=== PATIENT | male | born 1975 | race African-American/Black ===

== ENCOUNTER 2016-03-31 22:45 | Emergency (ER) | payer SELFPAY ==
[2016-03-31 23:46] LABS: AMPHETAMINES LEVEL URINE NEGATIVE (NEGATIVE); BENZODIAZEPINES URINE NEGATIVE (NEGATIVE); COCAINE METABOLITE URINE NEGATIVE (NEGATIVE); CONTROL LINE INT CTR LINE PRESENT; METHADONE URINE NEGATIVE (NEGATIVE); OPIATES URINE NEGATIVE (NEGATIVE); TRICYCLIC ANTIDEPRESS URINE NEGATIVE (NEGATIVE)
[2016-03-31 23:55] LABS: MEAN CORPUSCULAR HEMOGLOBIN 30.8 pg (27.0-33.0); MEAN CORPUSCULAR HGB CONC 32.4 g/dl (32.0-36.5); MEAN CORPUSCULAR VOLUME 95.2 fl (80.0-96.0); RED CELL DISTRIBUTION WIDTH 14.3 % (11.5-14.5); WHITE BLOOD COUNT 11.6 K/mm3 (4.0-10.0)
[2016-04-01 00:42] LABS: ANION GAP 11 MEQ/L (8-16); BLOOD UREA NITROGEN 12 MG/DL (7-18); CARBON DIOXIDE LEVEL 25 MEQ/L (21-32); CHLORIDE LEVEL 105 MEQ/L (98-107); CREATININE FOR GFR 1.09 MG/DL (0.70-1.30); GLOMERULAR FILTRATION RATE > 60.0 (>60); GLUCOSE, FASTING 87 MG/DL (70-105); POTASSIUM SERUM 3.6 MEQ/L (3.5-5.1); SODIUM LEVEL 141 MEQ/L (136-145)
[2016-04-01 00:43] LABS: ALBUMIN 4.1 GM/DL (3.2-5.2); ALBUMIN/GLOBULIN RATIO 1.05 (1.00-1.93); ALKALINE PHOSPHATASE 91 U/L (45-117); ALT/SGPT 22 U/L (12-78); AST/SGOT 18 U/L (15-37); BILIRUBIN,DIRECT < 0.1 MG/DL (0.0-0.2); BILIRUBIN,TOTAL 0.2 MG/DL (0.2-1.0); CALCIUM LEVEL 8.9 MG/DL (8.5-10.1)
--- NOTE | 2016-04-01 05:35 | EDDOCDS ---
Nurse's Notes [facility] Name: Jhon Hurd Age: 40 yrs Sex: Male : 1975 Arrival Date: 03/31/2016 Time: 22:45 Bed [facility] Private MD: NO PRIMARY PHYSICIAN, . Diagnosis: Alcohol use, unspecified with intoxication Presentation: 03/31 22:54 Presenting complaint: Patient states: pt affect very flat states " anxiety, depression sls1 and suicide, I dont know what more to tell you". Pt reports here from out of town been having these thoughts for "awhile". Mental Health Triage Level: Level 2: The patient displays active suicidal ideations. Adult Sepsis Screening: The patient does not have new or worsening altered mentation. Patient's respiratory rate is less than 22. Systolic blood pressure is greater than 100. Patient has a qSOFA score of 0- Negative Sepsis Screen. Mental Health Triage Level: Level 2:. Suicide/Homicide risk assessment- The patient admits to and/or has been reported to be having suicidal ideations. Patient denies SI and HI but presents with another emotional, behavioral or other mental health complaint. The patient reports that he/she. Status: Transition of care: patient was not received from another setting of care. 22:54 Acuity: RSOSY Level 3 sls1 22:54 Method Of Arrival: Walkin/Carried/Asstd sls1 Triage Assessment: 22:58 General: Appears in no apparent distress, Behavior is appropriate for age, cooperative. sls1 Pain: Denies pain. Pt Declines HIV testing. The patient is triaged at the bedside. See Assessment in Nurses Notes section of ED record. Neurological: Level of Consciousness is awake, alert. Respiratory: No deficits noted. Historical: - Allergies: no known allergies; - Home Meds: 1. none - PMHx: none; - PSHx: none; - Social history: Smoking status: Patient uses tobacco products, current every day smoker. No barriers to communication noted, The patient speaks fluent Macedonian, Speaks appropriately for age. - Family history: Not pertinent. - : The pt / caregiver states he / she is not on anticoagulants. Home medication list is obtained from the patient. - Exposure Risk Screening:: None identified. Screenin:00 Screening information is obtained from the patient. Fall risk: No risks identified. mgs Assistance ADL's: requires no assistance with activities of daily living. Abuse/DV Screen: The patient / caregiver reports he/she is: not in a situation that causes fear, pain or injury. Nutritional screening: No deficits noted. Advance Directives: Currently, there is no health care proxy. There is no active DNR order. home support is inadequate. Assessment: 23:03 Adult Sepsis Screening: The patient does not have new or worsening altered mentation. mgs Patient's respiratory rate is less than 22. Systolic blood pressure is greater than 100. Patient has a qSOFA score of 0- Negative Sepsis Screen. General: Appears unkempt, Behavior is cooperative. Neurological: Level of Consciousness is awake, alert, Oriented to person, place, time. Cardiovascular: Capillary refill < 3 seconds Heart tones S1 S2 present Pulses are 2+ in right radial artery and left radial artery. Respiratory: Airway is patent Respiratory effort is even, unlabored, Respiratory pattern is regular, symmetrical. 04/01 02:17 General: Appears in no apparent distress, Behavior is cooperative. Neurological: Level mgs of Consciousness is awake, alert, Oriented to person, place, time. Cardiovascular: Capillary refill < 3 seconds. Respiratory: Airway is patent Respiratory effort is even, unlabored, Respiratory pattern is regular, symmetrical. Derm: Skin is normal. 03:28 General: Appears in no apparent distress, Behavior is cooperative. Neurological: Level mgs of Consciousness is awake, alert, Oriented to person, place, time. Cardiovascular: Capillary refill < 3 seconds. Respiratory: Airway is patent Respiratory effort is even, unlabored, Respiratory pattern is regular, symmetrical. Derm: Skin is normal. 04:24 General: Appears in no apparent distress, Behavior is cooperative. Neurological: Level mgs of Consciousness is awake, alert, Oriented to person, place, time. Cardiovascular: Capillary refill < 3 seconds. Respiratory: Airway is patent Respiratory effort is even, unlabored, Respiratory pattern is regular, symmetrical. :. Derm: Skin is normal. 04:38 Adult Sepsis Screening: The patient does not have new or worsening altered mentation. mgs Patient's respiratory rate is less than 22. Systolic blood pressure is greater than 100. Patient has a qSOFA score of 0- Negative Sepsis Screen. General: Appears in no apparent distress, Behavior is appropriate for age, cooperative. Neurological: Level of Consciousness is awake, alert, Oriented to person, place, time. Cardiovascular: Capillary refill < 3 seconds. Respiratory: Airway is patent Respiratory effort is even, unlabored, Respiratory pattern is regular, symmetrical. Derm: Skin is normal. 05:34 General: Appears in no apparent distress, comfortable, Behavior is appropriate for age, ka4 cooperative, pleasant. Respiratory: Airway is patent Respiratory effort is even, unlabored, Respiratory pattern is regular, symmetrical. Derm: Skin is pink, warm & dry. Mental Health Eval: 04:29 Mental health consult is initiated at 04:00. 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 [facility]: The patient is not an established patient of [facility]. Referral Information: Evaluation referral is generated by the patient & his AA sponser. The patient was referred for evaluation because he was upset, intoxicated & expressed non-specific SI last evening. Subjective: The patients chief complaint is "I had a moment, that's all". Delusions are denied. Patient's mood is dysphoric. Hallucinations are denied. Patient was brought by his AA sponsor, who reported that patient reached out to him via text message last evening. Sponsor reports that patient was upset, had been drinking & said that he had thoughts of killing himself, in one of the texts. Sponsor stated that he had hx here a couple of years ago & his visit here was of great benefit, prompting him to bring patient here tonight. He advised that if D/C, patient would be able to stay with him. During interview patient explained that he & his GF had broken up & that this breakup had been coming for some time. He states that he is from [place] & that they'd met online a few years ago. He says that he moved here to be with her a year ago, but they are essentially "Two completely different people" & that their relationship was not working. He states that he left her place today for good, had consumed several beers & began feeling bad about himself. He repeatedly said that he "Had a moment", when describing his SI. He insists that the thoughts were brief, without plan or intent. He denies having any mental health hx whatsoever. He reports h/o heavy drinking prior to moving here, although rarely drinks now (citing his GF being a non-drinker). He says that he has had success with AA & thus reached out to his sponsor socorro when he was feeling bad. He firmly denies SI/HI now & is requesting D/C. He states intent to stay with his sponsor & make his own follow up arrangements today (which is his day off from work at [employer]), if D/C. His sponsor is in agreement with this plan as well. Mental Health history: alcohol abuse, Mental Health Admissions: None. Current Outpatient Mental Health Services: None. Current living environment is homeless. Patient presents to Emergency Department with the following symptoms within the past 2 weeks: alcohol abuse, depressed mood, relational problem, suicidal ideation with no plan. Substance abuse: As reported above. Mental status exam: Patients appearance is appropriate, Patient's behavior is cooperative, Speech is normal. Affect is appropriate. Mood is dysphoric. Hallucinations are denied. Appetite is normal. Memory is good. Energy level is normal. Content of thought is normal. Thought process is intact. Cognitive level is oriented to person, place, time and situation Patient's insight is fair. Judgement is fair. Rapport with interviewer is good. Suicidal Ideation is denied. Homicidal ideation is denied. Disposition: Medically cleared for disposition by James Lawson DO Psychiatric Consult is deferred per ED physician, Dr Lawson. The patient has a safe destination which is to the home of his sponsor, via POV. [facility] Admission Criteria: Not Applicable. Vital Signs: 03/31 22:46 BP 154 / 78; Pulse 90; Resp 20 S; Temp 96.6(O); Pulse Ox 91% on R/A; Weight 77.11 kg gr2 (R); Height 6 ft. 0 in. (182.88 cm) (R); Pain 4/10; 04/01 04:38 BP 133 / 66; Pulse 86; Resp 18; Temp 98.1(T); Pulse Ox 100% on R/A; mgs 03/31 22:46 Body Mass Index 23.06 (77.11 kg, 182.88 cm) gr2 Vitals: 03/31 22:46 Log In Time: March 31, 2016 at 22:46. RN notified that patient meets Red Flag gr2 criteria. ED Course: 22:45 Patient visited by Bernice Cabezas. gr2 22:45 Patient moved to Waiting gr2 22:46 NO PRIMARY PHYSICIAN, . is Private Physician. gr2 22:51 Patient visited by Bernice Cabezas. gr2 22:51 [facility] Patient moved to [facility] sls1 22:55 Triage Initiated sls1 23:00 James Fitzgerald,CHELSEY is Primary Nurse. mgs 23:03 Patient visited by James Fitzgerald RN. mgs 23:35 Patient visited by Rashaad Pinon. tr 23:47 Patient visited by Rashaad Pinon. tr 23:50 Acetaminophen Level Sent. mgs 23:50 Basic Metabolic Profile Sent. mgs 23:50 Complete Blood Count Sent. mgs 23:50 Ethyl Alcohol (ethanol) Sent. mgs 23:50 Liver Profile Sent. mgs 23:50 Salicylate Level Sent. mgs 23:50 Thyroid Stimulating Hormone Sent. mgs 04/01 00:31 Patient visited by Rashaad Pinon. tr 01:12 Patient visited by Rashaad Pinon. tr 01:25 James Lawson DO is Attending Physician. mm11 01:25 Patient visited by James Lawson DO. mm11 01:44 Patient visited by Rashaad Pinon. tr 01:54 Patient visited by James Lawson DO. mm11 02:00 Psych Safety Check: Location: Psych Room. Visual Assessment: Cooperative. tr 02:15 Psych Safety Check: Location: Psych Room. Visual Assessment: Cooperative. tr 02:27 Patient visited by Rashaad Pinon. tr 02:45 Psych Safety Check: Location: Psych Room. Visual Assessment: Cooperative. tr 03:00 Psych Safety Check: Location: Psych Room. Visual Assessment: Cooperative. tr 03:08 [facility] Payment Agreement was scanned into [employer] and attached to record. hs2 03:13 Patient name changed from Jhon\\S\\L\\S\\Hurd\\S\\ to Jhon\\S\\Brock\\S\\Hurd. EDMS 03:15 Psych Safety Check: Location: Psych Room. Visual Assessment: Cooperative. tr 03:28 Patient visited by James Fitzgerald RN. mgs 03:30 Psych Safety Check: Location: Psych Room. Visual Assessment: Cooperative. tr 03:45 Psych Safety Check: Location: Psych Room. Visual Assessment: Cooperative. tr 04:00 Psych Safety Check: Location: Psych Room. Visual Assessment: Cooperative. tr 04:15 Psych Safety Check: Location: Psych Room. Visual Assessment: Cooperative. tr 04:25 Patient visited by James Fitzgerald RN. mgs 04:27 Patient visited by Angelo Barreto PSA. jl 04:36 Patient visited by Rashaad Pinon. tr 04:40 Patient visited by James Fitzgerald RN. mgs 04:44 PSA Outpatient Referrals was scanned into [employer] and attached to record. jl 04:49 Patient visited by Rashaad Pinon. tr 05:04 Patient visited by Rashaad Pinon. tr 05:19 Patient visited by Rashaad Pinon. tr 05:22 Referral list, As provided by PFS is Referral Physician. mm11 05:30 Patient visited by Rashaad Pinon. tr 05:34 The patient / caregiver is instructed regarding the plan of care and ED course. ka4 05:34 No IV's were initiated during this patient's visit. No procedures done that require ka4 assistance. Order Results: Lab Order: Acetaminophen Level; SPEC'M 03/31/16 23:45 Test: ACETAMINOPHEN LEVEL; Value: < 2.0; Range: 10.0-30.0; Abnormal: Below low normal; Units: UG/ML; Status: F Lab Order: Basic Metabolic Profile; SPEC'M 03/31/16 23:45 Test: GLUCOSE, FASTING; Value: 87; Range: 70-105; Units: MG/DL; Status: F Test: BLOOD UREA NITROGEN; Value: 12; Range: 7-18; Units: MG/DL; Status: F Test: CREATININE FOR GFR; Value: 1.09; Range: 0.70-1.30; Units: MG/DL; Status: F Test: GLOMERULAR FILTRATION RATE; Value: > 60.0; Range: >60; Status: F Test: SODIUM LEVEL; Value: 141; Range: 136-145; Units: MEQ/L; Status: F Test: POTASSIUM SERUM; Value: 3.6; Range: 3.5-5.1; Units: MEQ/L; Status: F Test: CHLORIDE LEVEL; Value: 105; Range: 98-107; Units: MEQ/L; Status: F Test: CARBON DIOXIDE LEVEL; Value: 25; Range: 21-32; Units: MEQ/L; Status: F Test: ANION GAP; Value: 11; Range: 8-16; Units: MEQ/L; Status: F Test: CALCIUM LEVEL; Value: 8.9; Range: 8.5-10.1; Units: MG/DL; Status: F Test Note: ; Units are mL/min/1.73 m2 Chronic Kidney Disease Staging per NKF: Stage I & II GFR >=60 Normal to Mildly Decreased Stage III GFR 30-59 Moderately Decreased Stage IV GFR 15-29 Severely Decreased Stage V GFR <15 Very Little GFR Left ESRD GFR <15 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 Lab Order: Complete Blood Count; SPEC'M 03/31/16 23:45 Test: WHITE BLOOD COUNT; Value: 11.6; Range: 4.0-10.0; Abnormal: Above high normal; Units: K/mm3; Status: F Test: RED BLOOD COUNT; Value: 4.38; Range: 4.30-6.10; Units: M/mm3; Status: F Test: HEMOGLOBIN; Value: 13.5; Range: 14.0-18.0; Abnormal: Below low normal; Units: g/dl; Status: F Test: HEMATOCRIT; Value: 41.7; Range: 42.0-52.0; Abnormal: Below low normal; Units: %; Status: F Test: MEAN CORPUSCULAR VOLUME; Value: 95.2; Range: 80.0-96.0; Units: fl; Status: F Test: MEAN CORPUSCULAR HEMOGLOBIN; Value: 30.8; Range: 27.0-33.0; Units: pg; Status: F Test: MEAN CORPUSCULAR HGB CONC; Value: 32.4; Range: 32.0-36.5; Units: g/dl; Status: F Test: RED CELL DISTRIBUTION WIDTH; Value: 14.3; Range: 11.5-14.5; Units: %; Status: F Test: PLATELET COUNT, AUTOMATED; Value: 228; Range: 150-450; Units: k/mm3; Status: F Lab Order: Drug Eval Toxicology ED Only; SPEC'M 03/31/16 00:00 Test: AMPHETAMINES LEVEL URINE; Value: NEGATIVE; Range: NEGATIVE; Status: F Test: BARBITURATES URINE; Value: NEGATIVE; Range: NEGATIVE; Status: F Test: BENZODIAZEPINES URINE; Value: NEGATIVE; Range: NEGATIVE; Status: F Test: CANNABINOIDS URINE; Value: NEGATIVE; Range: NEGATIVE; Status: F Test: COCAINE METABOLITE URINE; Value: NEGATIVE; Range: NEGATIVE; Status: F Test: METHADONE URINE; Value: NEGATIVE; Range: NEGATIVE; Status: F Test: OPIATES URINE; Value: NEGATIVE; Range: NEGATIVE; Status: F Test: TRICYCLIC ANTIDEPRESS URINE; Value: NEGATIVE; Range: NEGATIVE; Status: F Test Note: ; ALL PRESUMPTIVE POSITIVE FINDINGS ARE UNCONFIRMED NORMAL VALUES THRESHOLD IN NG/ML AMPHETAMINES 1000 METHAMPHETAMINES 1000 BARBITURATES 300 BENZODIAZEPINES 300 CANNABINOIDS (THC) 50 COCAINE METABOLITE 300 METHADONE 300 OPIATES 300 PHENCYCLIDINE 25 TRICYCLIC ANTIDEPRESSANTS 1000 RESULTS ARE FOR MEDICAL PURPOSES ONLY. ALL URINE SPECIMENS WILL BE SAVED FOR 3 DAYS. IF CONFIRMATION OF A PRESUMPTIVE POSTIVE SCREEN RESULT IS DESIRED, CALL CHEMISTRY ([phone]) AND REQUEST URINE TO BE SENT TO REFERENCE LAB. FOR A LIST OF CLOSELY RELATED COMPOUNDS PLEASE CALL THE LAB. Lab Order: Ethyl Alcohol (ethanol); SPEC'M 03/31/16 23:45 Test: ETHYL ALCOHOL (ETHANOL); Value: 0.159; Range: 0.000-0.010; Abnormal: Above high normal; Units: %; Status: F Lab Order: Liver Profile; SPEC'M 03/31/16 23:45 Test: AST/SGOT; Value: 18; Range: 15-37; Units: U/L; Status: F Test: ALT/SGPT; Value: 22; Range: 12-78; Units: U/L; Status: F Test: ALKALINE PHOSPHATASE; Value: 91; Range: 45-117; Units: U/L; Status: F Test: BILIRUBIN,TOTAL; Value: 0.2; Range: 0.2-1.0; Units: MG/DL; Status: F Test: BILIRUBIN,DIRECT; Value: < 0.1; Range: 0.0-0.2; Units: MG/DL; Status: F Test: TOTAL PROTEIN; Value: 8.0; Range: 6.4-8.2; Units: GM/DL; Status: F Test: ALBUMIN; Value: 4.1; Range: 3.2-5.2; Units: GM/DL; Status: F Test: ALBUMIN/GLOBULIN RATIO; Value: 1.05; Range: 1.00-1.93; Status: F Lab Order: Salicylate Level; SPEC'M 03/31/16 23:45 Test: SALICYLATE LEVEL; Value: 4.6; Range: 5.0-30.0; Abnormal: Below low normal; Units: MG/DL; Status: F Lab Order: Thyroid Stimulating Hormone; SPEC'M 03/31/16 23:45 Test: THYROID STIMULATING HORMONE; Value: 0.586; Range: 0.358-3.740; Units: uIU/ML; Status: F Outcome: 05:22 Discharge ordered by Provider. mm11 05:34 Discharge Assessment: Patient awake, alert and oriented x 3. No cognitive and/or ka4 functional deficits noted. Patient verbalized understanding of disposition instructions. patient administered narcotics - no. The following High Risk Discharge criteria are identified: None. Condition: good Condition: stable. No special radiology studies were completed. Property given to the patient. 05:35 Patient left the ED. ka4 Signatures: Dispatcher [employer] EDMS Angelo Barreto, Rashaad Pavon Matthew, DO DO mm11 Tracee Xiong, RN RN sls1 Bernice Cabezas gr2 Luly Lawrence LPN APPEALS COORDINATOR ka4 James Fitzgerald,RN RN s Aspen Thompson, Reg Reg hs2 MTDD
--- NOTE | 2016-04-01 05:35 | EDDOCDS ---
Physician Documentation [facility] Name: Jhon Hurd Age: 40 yrs Sex: Male : 1975 Arrival Date: 03/31/2016 Time: 22:45 Bed [facility] Private MD: NO PRIMARY PHYSICIAN, . Disposition: 04/01/16 05:22 Discharged to Home/Self Care. Impression: Alcohol use, unspecified with intoxication. - Condition is Stable. - Discharge Instructions: Alcohol Intoxication, Alcohol Intoxication, [id number]. - Medication Reconciliation, Local Pharmacy Hours form. - Follow up: Referral list, As provided by PFS; When: Call to arrange an appointment; Reason: To establish care. - Problem is an acute exacerbation. - Symptoms have improved. Historical: - Allergies: no known allergies; - Home Meds: 1. none - PMHx: none; - PSHx: none; - Social history: Smoking status: Patient uses tobacco products, current every day smoker. No barriers to communication noted, The patient speaks fluent Mohawk, Speaks appropriately for age. - Family history: Not pertinent. - : The pt / caregiver states he / she is not on anticoagulants. Home medication list is obtained from the patient. - Exposure Risk Screening:: None identified. Vital Signs: 03/31 22:46 BP 154 / 78; Pulse 90; Resp 20 S; Temp 96.6(O); Pulse Ox 91% on R/A; Weight 77.11 kg / gr2 170 lbs (R); Height 6 ft. 0 in. (182.88 cm) (R); Pain 4/10; 04/01 04:38 BP 133 / 66; Pulse 86; Resp 18; Temp 98.1(T); Pulse Ox 100% on R/A; mgs 03/31 22:46 Body Mass Index 23.06 (77.11 kg, 182.88 cm) gr2 MDM: 03/31 23:00 Consult PFS/PSA/Manager Talent ordered. apr 06:00 Consult PFS/PSA/Manager Talent: Patient's case requires discussion with on-call tristan Psychiatrist ordered. 23:00 PSA/PFS to call Nursing It Sales Consultant, to enter patient data on [place] Safe Act if patient tristan involuntarily admitted or transferred for SI or HI ordered. 23:00 Confirm accurate psychiatric medication list and times of last dosage ordered. mar 23:00 Detain Pt Until Medically/PFS Cleared ordered. mar 23:01 Acetaminophen Level Ordered. EDMS 23:01 Basic Metabolic Profile Ordered. EDMS 23:01 Complete Blood Count Ordered. EDMS 23:01 Drug Eval Toxicology ED Only Ordered. EDMS 23:01 Ethyl Alcohol (ethanol) Ordered. EDMS 23:01 Liver Profile Ordered. EDMS 23:01 Salicylate Level Ordered. EDMS 23:01 Thyroid Stimulating Hormone Ordered. EDMS 04/01 03:04 Financial registration complete. hs2 03:08 [facility] Payment Agreement was scanned into [employer] and attached to record. hs2 03:20 Acetaminophen Level Reviewed. mm11 03:20 Complete Blood Count Reviewed. mm11 03:20 Ethyl Alcohol (ethanol) Reviewed. mm11 03:20 Salicylate Level Reviewed. mm11 03:20 Basic Metabolic Profile Reviewed. mm11 03:20 Drug Eval Toxicology ED Only Reviewed. mm11 03:20 Liver Profile Reviewed. mm11 03:20 Thyroid Stimulating Hormone Reviewed. mm11 04:44 PSA Outpatient Referrals was scanned into [employer] and attached to record. jl 04:45 Consult PFS/PSA/Manager Talent complete. jl 04:45 Consult PFS/PSA/Manager Talent: Patient's case requires discussion with on-call jl Psychiatrist complete. 04:45 PSA/PFS to call Nursing It Sales Consultant, to enter patient data on [place] Safe [place] if patient jl involuntarily admitted or transferred for SI or HI complete. 05:13 REGULAR DIET PLASTIC SIFUENTES+DIET ordered. EDMS Signatures: Dispatcher [employer] EDRI Renée Steward RN RN jan LaFontaine, Jon, PSA PSA James Kim, DO DO mm11 Tracee Xiong RN RN sls1 Luly Lawrence LPN TRANSPORTATION MAINTENANCE SPECIALIST ka4 Aspen Thompson, Reg Reg hs2 The chart was reviewed and I authenticate all verbal orders and agree with the evaluation and treatment provided.Attachments: 03:08 [facility] Payment Agreement hs2 MTDD
--- NOTE | 2016-04-03 06:35 | EDDOCDS ---
Nurse's Notes [facility] Name: Jhon Hurd Age: 40 yrs Sex: Male : 1975 Arrival Date: 03/31/2016 Time: 22:45 Bed [facility] Private MD: NO PRIMARY PHYSICIAN, . Diagnosis: Alcohol use, unspecified with intoxication Presentation: 03/31 22:54 Presenting complaint: Patient states: pt affect very flat states " anxiety, depression sls1 and suicide, I dont know what more to tell you". Pt reports here from out of town been having these thoughts for "awhile". Mental Health Triage Level: Level 2: The patient displays active suicidal ideations. Adult Sepsis Screening: The patient does not have new or worsening altered mentation. Patient's respiratory rate is less than 22. Systolic blood pressure is greater than 100. Patient has a qSOFA score of 0- Negative Sepsis Screen. Mental Health Triage Level: Level 2:. Suicide/Homicide risk assessment- The patient admits to and/or has been reported to be having suicidal ideations. Patient denies SI and HI but presents with another emotional, behavioral or other mental health complaint. The patient reports that he/she. Status: Transition of care: patient was not received from another setting of care. 22:54 Acuity: ROSSY Level 3 sls1 22:54 Method Of Arrival: Walkin/Carried/Asstd sls1 Triage Assessment: 22:58 General: Appears in no apparent distress, Behavior is appropriate for age, cooperative. sls1 Pain: Denies pain. Pt Declines HIV testing. The patient is triaged at the bedside. See Assessment in Nurses Notes section of ED record. Neurological: Level of Consciousness is awake, alert. Respiratory: No deficits noted. Historical: - Allergies: no known allergies; - Home Meds: 1. none - PMHx: none; - PSHx: none; - Social history: Smoking status: Patient uses tobacco products, current every day smoker. No barriers to communication noted, The patient speaks fluent Tajik, Speaks appropriately for age. - Family history: Not pertinent. - : The pt / caregiver states he / she is not on anticoagulants. Home medication list is obtained from the patient. - Exposure Risk Screening:: None identified. Screenin:00 Screening information is obtained from the patient. Fall risk: No risks identified. mgs Assistance ADL's: requires no assistance with activities of daily living. Abuse/DV Screen: The patient / caregiver reports he/she is: not in a situation that causes fear, pain or injury. Nutritional screening: No deficits noted. Advance Directives: Currently, there is no health care proxy. There is no active DNR order. home support is inadequate. Assessment: 23:03 Adult Sepsis Screening: The patient does not have new or worsening altered mentation. mgs Patient's respiratory rate is less than 22. Systolic blood pressure is greater than 100. Patient has a qSOFA score of 0- Negative Sepsis Screen. General: Appears unkempt, Behavior is cooperative. Neurological: Level of Consciousness is awake, alert, Oriented to person, place, time. Cardiovascular: Capillary refill < 3 seconds Heart tones S1 S2 present Pulses are 2+ in right radial artery and left radial artery. Respiratory: Airway is patent Respiratory effort is even, unlabored, Respiratory pattern is regular, symmetrical. 04/01 02:17 General: Appears in no apparent distress, Behavior is cooperative. Neurological: Level mgs of Consciousness is awake, alert, Oriented to person, place, time. Cardiovascular: Capillary refill < 3 seconds. Respiratory: Airway is patent Respiratory effort is even, unlabored, Respiratory pattern is regular, symmetrical. Derm: Skin is normal. 03:28 General: Appears in no apparent distress, Behavior is cooperative. Neurological: Level mgs of Consciousness is awake, alert, Oriented to person, place, time. Cardiovascular: Capillary refill < 3 seconds. Respiratory: Airway is patent Respiratory effort is even, unlabored, Respiratory pattern is regular, symmetrical. Derm: Skin is normal. 04:24 General: Appears in no apparent distress, Behavior is cooperative. Neurological: Level mgs of Consciousness is awake, alert, Oriented to person, place, time. Cardiovascular: Capillary refill < 3 seconds. Respiratory: Airway is patent Respiratory effort is even, unlabored, Respiratory pattern is regular, symmetrical. :. Derm: Skin is normal. 04:38 Adult Sepsis Screening: The patient does not have new or worsening altered mentation. mgs Patient's respiratory rate is less than 22. Systolic blood pressure is greater than 100. Patient has a qSOFA score of 0- Negative Sepsis Screen. General: Appears in no apparent distress, Behavior is appropriate for age, cooperative. Neurological: Level of Consciousness is awake, alert, Oriented to person, place, time. Cardiovascular: Capillary refill < 3 seconds. Respiratory: Airway is patent Respiratory effort is even, unlabored, Respiratory pattern is regular, symmetrical. Derm: Skin is normal. 05:34 General: Appears in no apparent distress, comfortable, Behavior is appropriate for age, ka4 cooperative, pleasant. Respiratory: Airway is patent Respiratory effort is even, unlabored, Respiratory pattern is regular, symmetrical. Derm: Skin is pink, warm & dry. Mental Health Eval: 04:29 Mental health consult is initiated at 04:00. Status: The patient is not a director of patient financial services or dependent. [facility] Behavioral Health: The patient is not an established patient of [facility] Behavioral Health. Referral Information: Evaluation referral is generated by the patient & his AA sponser. The patient was referred for evaluation because he was upset, intoxicated & expressed non-specific SI last evening. Subjective: The patients chief complaint is "I had a moment, that's all". Delusions are denied. Patient's mood is dysphoric. Hallucinations are denied. Patient was brought by his AA sponsor, who reported that patient reached out to him via text message last evening. Sponsor reports that patient was upset, had been drinking & said that he had thoughts of killing himself, in one of the texts. Sponsor stated that he had hx here a couple of years ago & his visit here was of great benefit, prompting him to bring patient here tonight. He advised that if D/C, patient would be able to stay with him. During interview patient explained that he & his GF had broken up & that this breakup had been coming for some time. He states that he is from [place] & that they'd met online a few years ago. He says that he moved here to be with her a year ago, but they are essentially "Two completely different people" & that their relationship was not working. He states that he left her place today for good, had consumed several beers & began feeling bad about himself. He repeatedly said that he "Had a moment", when describing his SI. He insists that the thoughts were brief, without plan or intent. He denies having any mental health hx whatsoever. He reports h/o heavy drinking prior to moving here, although rarely drinks now (citing his GF being a non-drinker). He says that he has had success with AA & thus reached out to his sponsor socorro when he was feeling bad. He firmly denies SI/HI now & is requesting D/C. He states intent to stay with his sponsor & make his own follow up arrangements today (which is his day off from work at [employer]), if D/C. His sponsor is in agreement with this plan as well. Mental Health history: alcohol abuse, Mental Health Admissions: None. Current Outpatient Mental Health Services: None. Current living environment is homeless. Patient presents to Emergency Department with the following symptoms within the past 2 weeks: alcohol abuse, depressed mood, relational problem, suicidal ideation with no plan. Substance abuse: As reported above. Mental status exam: Patients appearance is appropriate, Patient's behavior is cooperative, Speech is normal. Affect is appropriate. Mood is dysphoric. Hallucinations are denied. Appetite is normal. Memory is good. Energy level is normal. Content of thought is normal. Thought process is intact. Cognitive level is oriented to person, place, time and situation Patient's insight is fair. Judgement is fair. Rapport with interviewer is good. Suicidal Ideation is denied. Homicidal ideation is denied. Disposition: Medically cleared for disposition by James Lawson DO Psychiatric Consult is deferred per ED physician, Dr Lawson. The patient has a safe destination which is to the home of his sponsor, via POV. [facility] Admission Criteria: Not Applicable. Vital Signs: 03/31 22:46 BP 154 / 78; Pulse 90; Resp 20 S; Temp 96.6(O); Pulse Ox 91% on R/A; Weight 77.11 kg gr2 (R); Height 6 ft. 0 in. (182.88 cm) (R); Pain 4/10; 04/01 04:38 BP 133 / 66; Pulse 86; Resp 18; Temp 98.1(T); Pulse Ox 100% on R/A; mgs 03/31 22:46 Body Mass Index 23.06 (77.11 kg, 182.88 cm) gr2 Vitals: 03/31 22:46 Log In Time: March 31, 2016 at 22:46. RN notified that patient meets Red Flag gr2 criteria. ED Course: 22:45 Patient visited by Bernice Cabezas. gr2 22:45 Patient moved to Waiting gr2 22:46 NO PRIMARY PHYSICIAN, . is Private Physician. gr2 22:51 Patient visited by Bernice Cabezas. gr2 22:51 [facility] Patient moved to [facility] sls1 22:55 Triage Initiated sls1 23:00 James Fitzgerald,CHELSEY is Primary Nurse. mgs 23:03 Patient visited by James Fitzgerald RN. mgs 23:35 Patient visited by Rashaad Pinon. tr 23:47 Patient visited by Rashaad Pinon. tr 23:50 Acetaminophen Level Sent. mgs 23:50 Basic Metabolic Profile Sent. mgs 23:50 Complete Blood Count Sent. mgs 23:50 Ethyl Alcohol (ethanol) Sent. mgs 23:50 Liver Profile Sent. mgs 23:50 Salicylate Level Sent. mgs 23:50 Thyroid Stimulating Hormone Sent. mgs 04/01 00:31 Patient visited by Rashaad Pinon. tr 01:12 Patient visited by Rashaad Pinon. tr 01:25 James Lawson DO is Attending Physician. mm11 01:25 Patient visited by James Lawson DO. mm11 01:44 Patient visited by Rashaad Pinon. tr 01:54 Patient visited by James Lawson DO. mm11 02:00 Psych Safety Check: Location: Psych Room. Visual Assessment: Cooperative. tr 02:15 Psych Safety Check: Location: Psych Room. Visual Assessment: Cooperative. tr 02:27 Patient visited by Rashaad Pinon. tr 02:45 Psych Safety Check: Location: Psych Room. Visual Assessment: Cooperative. tr 03:00 Psych Safety Check: Location: Psych Room. Visual Assessment: Cooperative. tr 03:08 [facility] Payment Agreement was scanned into [employer] and attached to record. hs2 03:13 Patient name changed from Jhon\\S\\L\\S\\Hurd\\S\\ to Jhon\\S\\Brock\\S\\Hurd. EDMS 03:15 Psych Safety Check: Location: Psych Room. Visual Assessment: Cooperative. tr 03:28 Patient visited by James Fitzgerald RN. mgs 03:30 Psych Safety Check: Location: Psych Room. Visual Assessment: Cooperative. tr 03:45 Psych Safety Check: Location: Psych Room. Visual Assessment: Cooperative. tr 04:00 Psych Safety Check: Location: Psych Room. Visual Assessment: Cooperative. tr 04:15 Psych Safety Check: Location: Psych Room. Visual Assessment: Cooperative. tr 04:25 Patient visited by James Fitzgerald RN. mgs 04:27 Patient visited by Angelo Barreto PSA. jl 04:36 Patient visited by Rashaad Pinon. tr 04:40 Patient visited by James Fitzgerald RN. mgs 04:44 PSA Outpatient Referrals was scanned into [employer] and attached to record. jl 04:49 Patient visited by Rashaad Pinon. tr 05:04 Patient visited by Rashaad Pinon. tr 05:19 Patient visited by Rashaad Pinon. tr 05:22 Referral list, As provided by PFS is Referral Physician. mm11 05:30 Patient visited by Rashaad Pinon. tr 05:34 The patient / caregiver is instructed regarding the plan of care and ED course. ka4 05:34 No IV's were initiated during this patient's visit. No procedures done that require ka4 assistance. 12:03 T-Sheet-- Draft Copy was scanned into [employer] and attached to record. gb Order Results: Lab Order: Acetaminophen Level; SPEC'M 03/31/16 23:45 Test: ACETAMINOPHEN LEVEL; Value: < 2.0; Range: 10.0-30.0; Abnormal: Below low normal; Units: UG/ML; Status: F Lab Order: Basic Metabolic Profile; SPEC'M 03/31/16 23:45 Test: GLUCOSE, FASTING; Value: 87; Range: 70-105; Units: MG/DL; Status: F Test: BLOOD UREA NITROGEN; Value: 12; Range: 7-18; Units: MG/DL; Status: F Test: CREATININE FOR GFR; Value: 1.09; Range: 0.70-1.30; Units: MG/DL; Status: F Test: GLOMERULAR FILTRATION RATE; Value: > 60.0; Range: >60; Status: F Test: SODIUM LEVEL; Value: 141; Range: 136-145; Units: MEQ/L; Status: F Test: POTASSIUM SERUM; Value: 3.6; Range: 3.5-5.1; Units: MEQ/L; Status: F Test: CHLORIDE LEVEL; Value: 105; Range: 98-107; Units: MEQ/L; Status: F Test: CARBON DIOXIDE LEVEL; Value: 25; Range: 21-32; Units: MEQ/L; Status: F Test: ANION GAP; Value: 11; Range: 8-16; Units: MEQ/L; Status: F Test: CALCIUM LEVEL; Value: 8.9; Range: 8.5-10.1; Units: MG/DL; Status: F Test Note: ; Units are mL/min/1.73 m2 Chronic Kidney Disease Staging per NKF: Stage I & II GFR >=60 Normal to Mildly Decreased Stage III GFR 30-59 Moderately Decreased Stage IV GFR 15-29 Severely Decreased Stage V GFR <15 Very Little GFR Left ESRD GFR <15 on LOCKSTITCH TUNNEL ELASTIC OPERATOR Lab Order: Complete Blood Count; SPEC'M 03/31/16 23:45 Test: WHITE BLOOD COUNT; Value: 11.6; Range: 4.0-10.0; Abnormal: Above high normal; Units: K/mm3; Status: F Test: RED BLOOD COUNT; Value: 4.38; Range: 4.30-6.10; Units: M/mm3; Status: F Test: HEMOGLOBIN; Value: 13.5; Range: 14.0-18.0; Abnormal: Below low normal; Units: g/dl; Status: F Test: HEMATOCRIT; Value: 41.7; Range: 42.0-52.0; Abnormal: Below low normal; Units: %; Status: F Test: MEAN CORPUSCULAR VOLUME; Value: 95.2; Range: 80.0-96.0; Units: fl; Status: F Test: MEAN CORPUSCULAR HEMOGLOBIN; Value: 30.8; Range: 27.0-33.0; Units: pg; Status: F Test: MEAN CORPUSCULAR HGB CONC; Value: 32.4; Range: 32.0-36.5; Units: g/dl; Status: F Test: RED CELL DISTRIBUTION WIDTH; Value: 14.3; Range: 11.5-14.5; Units: %; Status: F Test: PLATELET COUNT, AUTOMATED; Value: 228; Range: 150-450; Units: k/mm3; Status: F Lab Order: Drug Eval Toxicology ED Only; SPEC'M 03/31/16 00:00 Test: AMPHETAMINES LEVEL URINE; Value: NEGATIVE; Range: NEGATIVE; Status: F Test: BARBITURATES URINE; Value: NEGATIVE; Range: NEGATIVE; Status: F Test: BENZODIAZEPINES URINE; Value: NEGATIVE; Range: NEGATIVE; Status: F Test: CANNABINOIDS URINE; Value: NEGATIVE; Range: NEGATIVE; Status: F Test: COCAINE METABOLITE URINE; Value: NEGATIVE; Range: NEGATIVE; Status: F Test: METHADONE URINE; Value: NEGATIVE; Range: NEGATIVE; Status: F Test: OPIATES URINE; Value: NEGATIVE; Range: NEGATIVE; Status: F Test: TRICYCLIC ANTIDEPRESS URINE; Value: NEGATIVE; Range: NEGATIVE; Status: F Test Note: ; ALL PRESUMPTIVE POSITIVE FINDINGS ARE UNCONFIRMED NORMAL VALUES THRESHOLD IN NG/ML AMPHETAMINES 1000 METHAMPHETAMINES 1000 BARBITURATES 300 BENZODIAZEPINES 300 CANNABINOIDS (THC) 50 COCAINE METABOLITE 300 METHADONE 300 OPIATES 300 PHENCYCLIDINE 25 TRICYCLIC ANTIDEPRESSANTS 1000 RESULTS ARE FOR MEDICAL PURPOSES ONLY. ALL URINE SPECIMENS WILL BE SAVED FOR 3 DAYS. IF CONFIRMATION OF A PRESUMPTIVE POSTIVE SCREEN RESULT IS DESIRED, CALL CHEMISTRY ([phone]) AND REQUEST URINE TO BE SENT TO REFERENCE LAB. FOR A LIST OF CLOSELY RELATED COMPOUNDS PLEASE CALL THE LAB. Lab Order: Ethyl Alcohol (ethanol); SPEC'M 03/31/16 23:45 Test: ETHYL ALCOHOL (ETHANOL); Value: 0.159; Range: 0.000-0.010; Abnormal: Above high normal; Units: %; Status: F Lab Order: Liver Profile; SPEC'M 03/31/16 23:45 Test: AST/SGOT; Value: 18; Range: 15-37; Units: U/L; Status: F Test: ALT/SGPT; Value: 22; Range: 12-78; Units: U/L; Status: F Test: ALKALINE PHOSPHATASE; Value: 91; Range: 45-117; Units: U/L; Status: F Test: BILIRUBIN,TOTAL; Value: 0.2; Range: 0.2-1.0; Units: MG/DL; Status: F Test: BILIRUBIN,DIRECT; Value: < 0.1; Range: 0.0-0.2; Units: MG/DL; Status: F Test: TOTAL PROTEIN; Value: 8.0; Range: 6.4-8.2; Units: GM/DL; Status: F Test: ALBUMIN; Value: 4.1; Range: 3.2-5.2; Units: GM/DL; Status: F Test: ALBUMIN/GLOBULIN RATIO; Value: 1.05; Range: 1.00-1.93; Status: F Lab Order: Salicylate Level; SPEC'M 03/31/16 23:45 Test: SALICYLATE LEVEL; Value: 4.6; Range: 5.0-30.0; Abnormal: Below low normal; Units: MG/DL; Status: F Lab Order: Thyroid Stimulating Hormone; SPEC'M 03/31/16 23:45 Test: THYROID STIMULATING HORMONE; Value: 0.586; Range: 0.358-3.740; Units: uIU/ML; Status: F Outcome: 05:22 Discharge ordered by Provider. mm11 05:34 Discharge Assessment: Patient awake, alert and oriented x 3. No cognitive and/or ka4 functional deficits noted. Patient verbalized understanding of disposition instructions. patient administered narcotics - no. The following High Risk Discharge criteria are identified: None. Condition: good Condition: stable. No special radiology studies were completed. Property given to the patient. 05:35 Patient left the ED. ka4 Signatures: Dispatcher [employer] EDMS Angelo Barreto, VALENTINA PSA Vanessa Maldonado, Reg Reg gb Rashaad Pinon Matthew, DO mm11 Tracee Xiong RN RN sls1 Bernice Cabezas gr2 Luly Lawrence LPN QUALITY ASSURANCE QA LAB TECHNICIAN ka4 James Fitzgerald RN RN mgAspen Flores, Reg Reg hs2 Chart Complete MTDD
--- NOTE | 2016-04-03 06:35 | EDDOCDS ---
Physician Documentation [facility] Name: Jhon Hurd Age: 40 yrs Sex: Male : 1975 Arrival Date: 03/31/2016 Time: 22:45 Bed [facility] Private MD: NO PRIMARY PHYSICIAN, . Disposition: 04/01/16 05:22 Discharged to Home/Self Care. Impression: Alcohol use, unspecified with intoxication. - Condition is Stable. - Discharge Instructions: Alcohol Intoxication, Alcohol Intoxication, [id number]. - Medication Reconciliation, Local Pharmacy Hours form. - Follow up: Referral list, As provided by PFS; When: Call to arrange an appointment; Reason: To establish care. - Problem is an acute exacerbation. - Symptoms have improved. Historical: - Allergies: no known allergies; - Home Meds: 1. none - PMHx: none; - PSHx: none; - Social history: Smoking status: Patient uses tobacco products, current every day smoker. No barriers to communication noted, The patient speaks fluent Polish, Speaks appropriately for age. - Family history: Not pertinent. - : The pt / caregiver states he / she is not on anticoagulants. Home medication list is obtained from the patient. - Exposure Risk Screening:: None identified. Vital Signs: 03/31 22:46 BP 154 / 78; Pulse 90; Resp 20 S; Temp 96.6(O); Pulse Ox 91% on R/A; Weight 77.11 kg / gr2 170 lbs (R); Height 6 ft. 0 in. (182.88 cm) (R); Pain 4/10; 04/01 04:38 BP 133 / 66; Pulse 86; Resp 18; Temp 98.1(T); Pulse Ox 100% on R/A; mgs 03/31 22:46 Body Mass Index 23.06 (77.11 kg, 182.88 cm) gr2 MDM: 03/31 23:00 Consult PFS/PSA/Cargo Operations Agent ordered. apr 06:00 Consult PFS/PSA/Cargo Operations Agent: Patient's case requires discussion with on-call tristan Psychiatrist ordered. 23:00 PSA/PFS to call Nursing Mechanical Striper, to enter patient data on [place] Safe Act if patient tristan involuntarily admitted or transferred for SI or HI ordered. 23:00 Confirm accurate psychiatric medication list and times of last dosage ordered. mar 23:00 Detain Pt Until Medically/PFS Cleared ordered. mar 23:01 Acetaminophen Level Ordered. EDMS 23:01 Basic Metabolic Profile Ordered. EDMS 23:01 Complete Blood Count Ordered. EDMS 23:01 Drug Eval Toxicology ED Only Ordered. EDMS 23:01 Ethyl Alcohol (ethanol) Ordered. EDMS 23:01 Liver Profile Ordered. EDMS 23:01 Salicylate Level Ordered. EDMS 23:01 Thyroid Stimulating Hormone Ordered. EDMS 04/01 03:04 Financial registration complete. hs2 03:08 [facility] Payment Agreement was scanned into [employer] and attached to record. hs2 03:20 Acetaminophen Level Reviewed. mm11 03:20 Complete Blood Count Reviewed. mm11 03:20 Ethyl Alcohol (ethanol) Reviewed. mm11 03:20 Salicylate Level Reviewed. mm11 03:20 Basic Metabolic Profile Reviewed. mm11 03:20 Drug Eval Toxicology ED Only Reviewed. mm11 03:20 Liver Profile Reviewed. mm11 03:20 Thyroid Stimulating Hormone Reviewed. mm11 04:44 PSA Outpatient Referrals was scanned into [employer] and attached to record. jl 04:45 Consult PFS/PSA/Cargo Operations Agent complete. jl 04:45 Consult PFS/PSA/Cargo Operations Agent: Patient's case requires discussion with on-call jl Psychiatrist complete. 04:45 PSA/PFS to call Nursing Mechanical Striper, to enter patient data [place] Safe [place] if patient jl involuntarily admitted or transferred for SI or HI complete. 05:13 REGULAR DIET PLASTIC SIFUENTES+DIET ordered. EDMS 12:03 T-Sheet-- Draft Copy was scanned into [employer] and attached to record. gb Signatures: Dispatcher [employer] EDKY Renée Steward RN RN jan LaFontaine, Jon, PSA PSA jl Vanessa Livingston, Reg Reg gb James Lawson, DO mm11 Tracee Xiong RN RN sls1 Luly Lawrence,POLICY WRITER SALES POLICY WRITER SALES ka4 Aspen Thompson, Reg Reg hs2 The chart was reviewed and I authenticate all verbal orders and agree with the evaluation and treatment provided.Attachments: 03:08 [facility] Payment Agreement hs2 12:03 T-Sheet-- Draft Copy gb Chart Complete MTDD
--- NOTE | 2016-04-03 06:35 | EDDOCDS ---
Physician Documentation [facility] Name: Jhon Hurd Age: 40 yrs Sex: Male : 1975 Arrival Date: 03/31/2016 Time: 22:45 Bed [facility] Private MD: NO PRIMARY PHYSICIAN, . Disposition: 04/01/16 05:22 Discharged to Home/Self Care. Impression: Alcohol use, unspecified with intoxication. - Condition is Stable. - Discharge Instructions: Alcohol Intoxication, Alcohol Intoxication, [id number]. - Medication Reconciliation, Local Pharmacy Hours form. - Follow up: Referral list, As provided by PFS; When: Call to arrange an appointment; Reason: To establish care. - Problem is an acute exacerbation. - Symptoms have improved. Historical: - Allergies: no known allergies; - Home Meds: 1. none - PMHx: none; - PSHx: none; - Social history: Smoking status: Patient uses tobacco products, current every day smoker. No barriers to communication noted, The patient speaks fluent Czech, Speaks appropriately for age. - Family history: Not pertinent. - : The pt / caregiver states he / she is not on anticoagulants. Home medication list is obtained from the patient. - Exposure Risk Screening:: None identified. Vital Signs: 03/31 22:46 BP 154 / 78; Pulse 90; Resp 20 S; Temp 96.6(O); Pulse Ox 91% on R/A; Weight 77.11 kg / gr2 170 lbs (R); Height 6 ft. 0 in. (182.88 cm) (R); Pain 4/10; 04/01 04:38 BP 133 / 66; Pulse 86; Resp 18; Temp 98.1(T); Pulse Ox 100% on R/A; mgs 03/31 22:46 Body Mass Index 23.06 (77.11 kg, 182.88 cm) gr2 MDM: 03/31 23:00 Consult PFS/PSA/Carpenter Helper ordered. apr 06:00 Consult PFS/PSA/Carpenter Helper: Patient's case requires discussion with on-call tristan Psychiatrist ordered. 23:00 PSA/PFS to call Nursing Multimedia Coordinator, to enter patient data on [place] Safe Act if patient tristan involuntarily admitted or transferred for SI or HI ordered. 23:00 Confirm accurate psychiatric medication list and times of last dosage ordered. mar 23:00 Detain Pt Until Medically/PFS Cleared ordered. mar 23:01 Acetaminophen Level Ordered. EDMS 23:01 Basic Metabolic Profile Ordered. EDMS 23:01 Complete Blood Count Ordered. EDMS 23:01 Drug Eval Toxicology ED Only Ordered. EDMS 23:01 Ethyl Alcohol (ethanol) Ordered. EDMS 23:01 Liver Profile Ordered. EDMS 23:01 Salicylate Level Ordered. EDMS 23:01 Thyroid Stimulating Hormone Ordered. EDMS 04/01 03:04 Financial registration complete. hs2 03:08 [facility] Payment Agreement was scanned into [employer] [place] and attached to record. hs2 03:20 Acetaminophen Level Reviewed. mm11 03:20 Complete Blood Count Reviewed. mm11 03:20 Ethyl Alcohol (ethanol) Reviewed. mm11 03:20 Salicylate Level Reviewed. mm11 03:20 Basic Metabolic Profile Reviewed. mm11 03:20 Drug Eval Toxicology ED Only Reviewed. mm11 03:20 Liver Profile Reviewed. mm11 03:20 Thyroid Stimulating Hormone Reviewed. mm11 04:44 PSA Outpatient Referrals was scanned into [employer] [place] [employer] [place] and attached to record. jl 04:45 Consult PFS/PSA/Carpenter Helper complete. jl 04:45 Consult PFS/PSA/Carpenter Helper: Patient's case requires discussion with on-call jl Psychiatrist complete. 04:45 PSA/PFS to call Nursing Multimedia Coordinator, to enter patient data [place] Safe [place] if patient jl involuntarily admitted or transferred for SI or HI complete. 05:13 REGULAR DIET PLASTIC SIFUENTES+DIET ordered. EDMS 12:03 T-Sheet-- Draft Copy was scanned into [employer] [place] [employer] [place] and attached to record. gb Signatures: Dispatcher [employer] EDIL Renée Steward RN RN jan LaFontaine, Jon, PSA PSA jl Vanessa Livingston, Reg Reg gb James Lawson, DO mm11 Tracee Xiong RN RN sls1 Luly Lawrence,SETTER [employer] SETTER [employer] ka4 Aspen Thompson, Reg Reg hs2 The chart was reviewed and I authenticate all verbal orders and agree with the evaluation and treatment provided.Attachments: 03:08 [facility] Payment Agreement hs2 12:03 T-Sheet-- Draft Copy gb Chart Complete MTDD
== END 2016-04-01 05:35 | disposition home or self-care (01) ==
LOC: M ED 22:45
DX: F10.129 Alcohol abuse with intoxication, unspecified (principal); F17.210 Nicotine dependence, cigarettes, uncomplicated; Z63.0 Problems in relationship with spouse or partner
CPT/HCPCS: 36415; 80048; 80076; 80306; 84443; 85027; 99283; G0480

== ENCOUNTER → 2017-02-17 | Outpatient (CLI) | payer OTHER ==
[2017-02-17 10:02] LABS: BASO # 0.1 10^3/uL (0.0-0.2); BASO % 0.8 % (0.0-1.0); EOS # 0.4 10^3/uL (0.0-0.50); EOS % 3.6 % (0.0-3.0); IMMATURE GRANULOCYTE % 0.2 % (0-0); LYMPH # 3.7 10^3/uL (1.5-4.5); LYMPH % 36.8 % (24.0-44.0); MEAN CORPUSCULAR HEMOGLOBIN 31.1 pg (27.0-33.0); MEAN CORPUSCULAR HGB CONC 33.5 g/dl (32.0-36.5); MONO # 0.7 10^3/uL (0.0-0.8); MONO % 7.1 % (0.0-5.0); NEUTROPHILS # 5.1 10^3/uL (1.8-7.7); NEUTROPHILS % 51.5 % (36.0-66.0); PLATELET COUNT, AUTOMATED 304 10^3/uL (150-450); RED CELL DISTRIBUTION WIDTH 13.3 % (11.5-14.5)
[2017-02-17 10:16] LABS: ALBUMIN 4.2 GM/DL (3.2-5.2); ALBUMIN/GLOBULIN RATIO 1.05 (1.00-1.93); ALKALINE PHOSPHATASE 106 U/L (45-117); ALT/SGPT 30 U/L (12-78); ANION GAP 8 MEQ/L (8-16); AST/SGOT 18 U/L (7-37); BILIRUBIN,TOTAL 0.3 MG/DL (0.2-1.0); BLOOD UREA NITROGEN 12 MG/DL (7-18); CALCIUM LEVEL 9.6 MG/DL (8.5-10.1); CARBON DIOXIDE LEVEL 30 MEQ/L (21-32); CHLORIDE LEVEL 105 MEQ/L (98-107); CREATININE FOR GFR 1.15 MG/DL (0.70-1.30); GLOMERULAR FILTRATION RATE > 60.0 (>60); GLUCOSE, FASTING 94 MG/DL (70-105); POTASSIUM SERUM 4.5 MEQ/L (3.5-5.1); SODIUM LEVEL 143 MEQ/L (136-145); TOTAL PROTEIN 8.2 GM/DL (6.4-8.2)
[2017-02-17 10:47] LABS: BACTERIA, URINE NONE SEEN; RBC, URINE NONE SEEN /hpf (0-3); SQUAMOUS EPITHELIAL CELL URINE NONE SEEN /hpf (SMALL AMT); WBC, URINE NONE SEEN /hpf (0-3)
[2017-02-17 10:48] LABS: HYALINE CAST, URINE NONE SEEN /lpf (0-1); MICROSCOPIC EXAM PERFORMED
--- NOTE | 2017-02-18 06:22 | REP ---
LEFT SHOULDER: CLINICAL: Left shoulder pain. TECHNIQUE: Internal rotation, external rotation, and Y view of the left shoulder. FINDINGS: There appears to be grade 2 acromioclavicular joint separation. A small 8 mm rounded well corticated loose body under the distal aspect of the clavicle appears chronic. No obvious acute fracture identified. The glenohumeral joint appears intact and normal. IMPRESSION: Grade 2 acromioclavicular joint separation and presumed small chronic loose body at the level of the clavicle. Clinical correlation is recommended. Signed by Colin Duarte MD 02/19/2017 08:39 A
--- NOTE | 2017-02-18 06:24 | REP ---
ACROMIOCLAVICULAR JOINT SERIES: CLINICAL: Left sided pain. TECHNIQUE: AP, neutral and weight bearing views of the bilateral acromioclavicular joints. FINDINGS: The right acromioclavicular joint is stable and normal in appearance. Left acromioclavicular joint demonstrates grade 2 separation with inferior placement of the acromion process in relation to the distal clavicle. There is no acute fracture. A small 8 mm well corticated rounded loose body is identified just below the distal clavicle which appears chronic. IMPRESSION: Grade 2 left AC joint separation and small chronic loose body. Signed by Colin Duarte MD 02/19/2017 08:50 A
== END ==
LOC: M LAB 09:04
PROVIDERS: ATTEND Nurse Practitioner Adult Health
DX: L98.9 Disorder of the skin and subcutaneous tissue, unspecified (principal); M25.512 Pain in left shoulder; M24.012 Loose body in left shoulder; S43.102A Unspecified dislocation of left acromioclavicular joint, initial encounter; X58.XXXA Exposure to other specified factors, initial encounter; Y92.89 Other specified places as the place of occurrence of the external cause; Y93.89 Activity, other specified; Y99.8 Other external cause status

== ENCOUNTER → 2017-03-23 | Outpatient (REF) | payer OTHER | LOC: M LAB REF 15:29 | DX: D48.5 Neoplasm of uncertain behavior of skin (principal) ==